=== PATIENT | female | born 1980 | race Caucasian/White ===

== ENCOUNTER 2021-12-02 12:11 | Emergency (ER) | payer MEDICAID ==
[~2021-12-02] VITALS: Ht 167.6 cm; Wt 85.0 kg
[2021-12-02 14:29] LABS: Basophils # (auto) 0.1 10 ^3/uL (0-0.2); Basophils % (auto) 2.9 % (0.0-2.0); Eosinophils # (auto) 0.1 10 ^3/uL (0-0.8); Eosinophils % (auto) 1.9 % (0.0-7.0); Hematocrit 37.5 % (36.0-46.0); Hemoglobin 12.3 g/dL (12.2-16.2); Lymphocytes # (auto) 1.2 10 ^3/uL (0.4-5.4); Lymphocytes % (auto) 25.6 % (10.0-50.0); Mean Corpuscular Hemoglobin 27.9 pg (28.0-32.0); Mean Corpuscular Hgb Conc. 32.9 g/dL (32.0-36.0); Mean Corpuscular Volume 84.9 fL (80.0-100.0); Monocytes # (auto) 0.2 10 ^3/uL (0-1.3); Monocytes % (auto) 5.3 % (0.0-12.0); Neutrophils % (auto) 64.3 % (37.0-80.0); Red Blood Cells 4.42 10^6/uL (4.0-5.20); Red Cell Distribution Width 13.9 % (11.8-14.3); White Blood Cell 4.7 10^3/uL (4.4-10.8)
[2021-12-02 14:49] LABS: Albumin 3.8 g/dL (3.4-5.0); CRP High Sensitivity 0.6 mg/dL (< 0.3); Calcium 8.5 mg/dL (8.5-10.1); Potassium 4.2 mmol/L (3.5-5.1)
[2021-12-02 14:52] LABS: Bilirubin, Total 0.4 mg/dL (0.2-1.0); Total Protein 7.6 g/dL (6.4-8.2)
[2021-12-02] MEDS ORDERED: CLIN300C8 PO (15:36)
[2021-12-02] MEDS ORDERED: FUROSEMIDE 20 MG TAB PO ONE (15:45)
[2021-12-02 15:57] VITALS: BP 130/76
== END 2021-12-02 16:07 | disposition home or self-care (01) ==
LOC: ER 12:11
DX: L03.116 Cellulitis of left lower limb (principal); R60.0 Localized edema; F19.10 Other psychoactive substance abuse, uncomplicated; Z90.49 Acquired absence of other specified parts of digestive tract; Z88.1 Allergy status to other antibiotic agents; Z79.2 Long term (current) use of antibiotics
CPT/HCPCS: 36415; 80053; 83605; 83880; 85025; 86141

== ENCOUNTER 2021-12-16 10:29 | Emergency (ER) | payer MEDICAID ==
[~2021-12-16] VITALS: Ht 167.6 cm; Wt 93.8 kg
[~2021-12-16 10:29] MED LIST: CLIN300C8 PO
[2021-12-16 11:23] VITALS: BP 98/60
[2021-12-16] MEDS ORDERED: BACDST PO (11:41)
[2021-12-16] MEDS ORDERED: CEPH-510 PO (11:41)
== END 2021-12-16 11:47 | disposition home or self-care (01) ==
LOC: ER 10:29
DX: Z48.817 Encounter for surgical aftercare following surgery on the skin and subcutaneous tissue (principal); Z90.49 Acquired absence of other specified parts of digestive tract; Z88.1 Allergy status to other antibiotic agents
CPT/HCPCS: 99283; J7030

== ENCOUNTER 2022-08-18 14:02 | Inpatient (IN) | payer MEDICAID ==
[~2022-08-18] VITALS: Ht 167.6 cm; Wt 100.2 kg
[~2022-08-18 14:02] MED LIST changes: +BACDST PO; +CEPH-510 PO; +CLIN300C70 PO; -CLIN300C8 PO
[2022-08-18] MEDS ORDERED: SODIUM CHLORIDE 0.9% 1,000 ML IV ONE (14:45)
[2022-08-18] MEDS ORDERED: CLINDAMYCIN 600MG IV 50 ML IV ONE (14:45)
[2022-08-18] MEDS ORDERED: cefTRIAXone 1GM/50ML D5W 50 ML IV ONE (14:45)
[2022-08-18 15:12] LABS: Basophils # (auto) 0 10 ^3/uL (0-0.2); Basophils % (auto) 0.3 % (0.0-2.0); Eosinophils # (auto) 0 10 ^3/uL (0-0.8); Hemoglobin 14.1 g/dL (12.2-16.2); Lymphocytes # (auto) 0.7 10 ^3/uL (0.4-5.4); Lymphocytes % (auto) 7.2 % (10.0-50.0); Mean Corpuscular Hemoglobin 27.4 pg (28.0-32.0); Mean Corpuscular Hgb Conc. 33.5 g/dL (32.0-36.0); Monocytes # (auto) 0.4 10 ^3/uL (0-1.3); Neutrophils # (auto) 9.2 10 ^3/uL (1.6-8.6); Neutrophils % (auto) 88.5 % (37.0-80.0); Nucleated Red Blood Cells % 0.6 %; Red Blood Cells 5.12 10^6/uL (4.0-5.20); Red Cell Distribution Width 15.1 % (11.8-14.3); White Blood Cell 10.4 10^3/uL (4.4-10.8)
[2022-08-18 15:29] LABS: Albumin 3.6 g/dL (3.4-5.0); Calcium 8.4 mg/dL (8.5-10.1); Potassium 3.7 mmol/L (3.5-5.1)
[2022-08-18 15:32] LABS: BUN/Creatinine Ratio 16.5 (10.0-20.0); INR 1.03 (0.9-1.15); Partial Thromboplastin Time 31.4 sec (24.6-33.4); Total Protein 8.2 g/dL (6.4-8.2)
[2022-08-18 15:33] LABS: Lactic Acid w/Reflex 2.2 mmol/L (0.4-2.0)
[2022-08-18 15:59] LABS: Urine Bacteria NONE SEEN /hpf (None Seen); Urine Blood Negative /uL (Negative); Urine Mucus FEW (None Seen); Urine Specific Gravity 1.025 (1.001-1.035); Urine WBC 5 /hpf (0 - 5)
[2022-08-18] MEDS: AMPICILLIN & SULBACTAM SODIUM 3 GM in SODIUM CHL 0.9% 100 ML IV SCH (20:00)
[2022-08-18] MEDS ORDERED: VANCOMYCIN PER PHARMACY 0 MG IV SCH (20:00)
[2022-08-19] MEDS: AMPICILLIN & SULBACTAM SODIUM 3 GM in SODIUM CHL 0.9% 100 ML IV SCH ×4 (02:00→20:52)
[2022-08-19] MEDS: VANCOMYCIN 1GM/250ML 250 ML IV SCH ×3 (03:27→23:00)
[2022-08-19 06:01] LABS: Basophils # (auto) 0 10 ^3/uL (0-0.2); Basophils % (auto) 0.1 % (0.0-2.0); Eosinophils # (auto) 0 10 ^3/uL (0-0.8); Eosinophils % (auto) 0.6 % (0.0-7.0); Hematocrit 36.9 % (36.0-46.0); Hemoglobin 12.6 g/dL (12.2-16.2); Lymphocytes % (auto) 14.1 % (10.0-50.0); Mean Corpuscular Volume 82.3 fL (80.0-100.0); Monocytes # (auto) 0.4 10 ^3/uL (0-1.3); Monocytes % (auto) 5.3 % (0.0-12.0); Neutrophils # (auto) 5.7 10 ^3/uL (1.6-8.6); Neutrophils % (auto) 79.9 % (37.0-80.0); Nucleated Red Blood Cells % 0.1 %; Red Blood Cells 4.48 10^6/uL (4.0-5.20); Red Cell Distribution Width 14.9 % (11.8-14.3); White Blood Cell 7.1 10^3/uL (4.4-10.8)
[2022-08-19 06:02] LABS: Albumin 3.4 g/dL (3.4-5.0); Potassium 3.4 mmol/L (3.5-5.1)
[2022-08-19 06:07] LABS: BUN/Creatinine Ratio 14.3 (10.0-20.0); Bilirubin, Total 0.9 mg/dL (0.2-1.0); Calcium 8.7 mg/dL (8.5-10.1); Total Protein 7.9 g/dL (6.4-8.2)
[2022-08-19 16:22] VITALS: BP 129/69
[2022-08-19 17:05] VITALS: BP 129/69
[2022-08-19 20:00] VITALS: BP 120/62
[2022-08-20] MEDS: AMPICILLIN & SULBACTAM SODIUM 3 GM in SODIUM CHL 0.9% 100 ML IV SCH ×3 (01:54→13:39)
[2022-08-20 05:00] VITALS: BP 135/76
[2022-08-20] MEDS: VANCOMYCIN 1GM/250ML 250 ML IV SCH ×3 (06:47→22:07)
[2022-08-20 08:00] VITALS: BP 126/68
[2022-08-20] MEDS: ACETAMINOPHEN 325 MG TAB PO PRN ×2 (09:00→21:00)
[2022-08-20] MEDS ORDERED: ONDANSETRON HCL 4 MG/2 ML VIAL IV PRN (10:45)
[2022-08-20 12:00] VITALS: BP 124/68
[2022-08-20] MEDS: METHADONE HCL 10 MG TAB PO SCH ×2 (13:39→22:01)
[2022-08-20 16:00] VITALS: BP 125/77
[2022-08-21 05:00] VITALS: BP 118/60
[2022-08-21 05:23] LABS: Basophils # (auto) 0 10 ^3/uL (0-0.2); Basophils % (auto) 0.6 % (0.0-2.0); Eosinophils # (auto) 0.1 10 ^3/uL (0-0.8); Eosinophils % (auto) 1.3 % (0.0-7.0); Hematocrit 31.9 % (36.0-46.0); Hemoglobin 10.7 g/dL (12.2-16.2); Lymphocytes % (auto) 18.7 % (10.0-50.0); Mean Corpuscular Hemoglobin 27.7 pg (28.0-32.0); Mean Corpuscular Hgb Conc. 33.7 g/dL (32.0-36.0); Mean Corpuscular Volume 82.2 fL (80.0-100.0); Monocytes # (auto) 0.3 10 ^3/uL (0-1.3); Monocytes % (auto) 4.9 % (0.0-12.0); Neutrophils % (auto) 74.5 % (37.0-80.0); Nucleated Red Blood Cells % 0.1 %; Red Blood Cells 3.88 10^6/uL (4.0-5.20); Red Cell Distribution Width 15.2 % (11.8-14.3); White Blood Cell 5.3 10^3/uL (4.4-10.8)
[2022-08-21 06:04] LABS: Calcium 7.9 mg/dL (8.5-10.1); Magnesium 2.1 mg/dL (1.6-2.6); Potassium 3.3 mmol/L (3.5-5.1)
[2022-08-21 06:07] LABS: BUN/Creatinine Ratio 16.4 (10.0-20.0)
[2022-08-21] MEDS: METHADONE HCL 10 MG TAB PO SCH ×3 (06:12→21:57)
[2022-08-21] MEDS: VANCOMYCIN 1GM/250ML 250 ML IV SCH ×3 (06:12→22:00)
[2022-08-21 07:45] VITALS: BP 113/58
[2022-08-21] MEDS ORDERED: POTASSIUM CHL 20 Meq TABLET PO ONE (08:15)
[2022-08-21 12:06] VITALS: BP 121/74
[2022-08-21 16:39] VITALS: BP 115/62
[2022-08-21 22:00] VITALS: BP_SYST 121; BP_SYST 129; BP_DIAS 72; BP_DIAS 75
[2022-08-22 05:00] VITALS: BP 114/68
[2022-08-22] MEDS: METHADONE HCL 10 MG TAB PO SCH ×3 (06:06→21:54)
[2022-08-22] MEDS: VANCOMYCIN 1GM/250ML 250 ML IV SCH ×4 (06:07→22:40)
[2022-08-22 08:25] LABS: BUN/Creatinine Ratio 13.4 (10.0-20.0); Calcium 8.7 mg/dL (8.5-10.1); Potassium 3.6 mmol/L (3.5-5.1)
[2022-08-22 09:00] VITALS: BP 116/65
[2022-08-22 12:10] VITALS: BP 110/57
[2022-08-22 16:49] VITALS: BP 137/76
[2022-08-22 22:00] VITALS: BP 144/82
[2022-08-23 05:00] VITALS: BP 137/81
[2022-08-23] MEDS: VANCOMYCIN 1GM/250ML 250 ML IV SCH (06:03)
[2022-08-23] MEDS: METHADONE HCL 10 MG TAB PO SCH (06:03)
[2022-08-23 09:00] VITALS: BP 129/81
[2022-08-23] MEDS ORDERED: BACDST PO (11:31)
[2022-08-23] MEDS ORDERED: METH10T PO ×3 (11:32→13:42)
[2022-08-23 13:00] VITALS: BP 123/81
[2022-08-23 13:11] VITALS: BP 123/81
== END 2022-08-23 14:15 | disposition home or self-care (01) | DRG 383 ==
LOC: ER 14:02 → OVERFLOW 19:46 → CENTRAL 08-19 14:53
PROVIDERS: ADMIT Nurse Practitioner Family; ATTEND Internal Medicine Geriatric Medicine
DX: L03.116 Cellulitis of left lower limb (principal); E87.1 Hypo-osmolality and hyponatremia; E66.9 Obesity, unspecified; E87.6 Hypokalemia; L97.329 Non-pressure chronic ulcer of left ankle with unspecified severity; S91.002A Unspecified open wound, left ankle, initial encounter; X58.XXXA Exposure to other specified factors, initial encounter; F17.200 Nicotine dependence, unspecified, uncomplicated; I87.8 Other specified disorders of veins; B96.1 Klebsiella pneumoniae [K. pneumoniae] as the cause of diseases classified elsewhere; B95.62 Methicillin resistant Staphylococcus aureus infection as the cause of diseases classified elsewhere; Z88.1 Allergy status to other antibiotic agents; Z59.00 Homelessness unspecified; Z80.1 Family history of malignant neoplasm of trachea, bronchus and lung; Z90.49 Acquired absence of other specified parts of digestive tract; Z59.7 Insufficient social insurance and welfare support; Z68.35 Body mass index [BMI] 35.0-35.9, adult; Y93.89 Activity, other specified; Y92.89 Other specified places as the place of occurrence of the external cause; Y99.8 Other external cause status
CPT/HCPCS: 36415; 71045; 73700; 80048; 80053; 80202; 81001; 83605; 83735; 83880; 85025; 85610; 85730; 87040; 87077; 87186; 87205; 93926; 93970; 93971; G0378; J0696; J3490

== ENCOUNTER 2023-01-27 11:10 | Inpatient (IN) | payer MEDICAID ==
[~2023-01-27] VITALS: Ht 167.6 cm; Wt 96.2 kg
[~2023-01-27 11:10] MED LIST changes: -CEPH-510 PO; -CLIN300C70 PO; +METH10T PO
[2023-01-27] MEDS ORDERED: VANCOMYCIN 1GM/250ML 250 ML IV ONE ×2 (12:45→17:15)
[2023-01-27 13:25] LABS: Basophils # (auto) 0.1 10 ^3/uL (0-0.2); Basophils % (auto) 0.5 % (0.0-2.0); Eosinophils # (auto) 0 10 ^3/uL (0-0.8); Hemoglobin 12.1 g/dL (12.2-16.2); Lymphocytes # (auto) 0.8 10 ^3/uL (0.4-5.4); Lymphocytes % (auto) 6.5 % (10.0-50.0); Mean Corpuscular Hemoglobin 27.2 pg (28.0-32.0); Mean Corpuscular Hgb Conc. 32.6 g/dL (32.0-36.0); Mean Corpuscular Volume 83.3 fL (80.0-100.0); Monocytes # (auto) 0.2 10 ^3/uL (0-1.3); Monocytes % (auto) 1.8 % (0.0-12.0); Neutrophils # (auto) 11.1 10 ^3/uL (1.6-8.6); Neutrophils % (auto) 91.2 % (37.0-80.0); Red Blood Cells 4.45 10^6/uL (4.0-5.20); White Blood Cell 12.1 10^3/uL (4.4-10.8)
[2023-01-27 13:49] LABS: Alanine Aminotransferase 16 U/L (7-40); Alkaline Phosphatase 101 U/L (46-116); Anion Gap 8 (5-15); Aspartate Aminotransferase 33 U/L (13-40); BUN/Creatinine Ratio 16.3 (10.0-20.0); Bilirubin, Total 0.6 mg/dL (0.2-1.0); Blood Urea Nitrogen 13 mg/dL (9-23); Calcium 8.8 mg/dL (8.5-10.1); Carbon Dioxide 27 mmol/L (20-30); Chloride 97 mmol/L (98-107); Glucose 132 mg/dL (74-106); Potassium 4.6 mmol/L (3.5-5.1); Sodium 132 mmol/L (136-145); Total Protein 7.6 g/dL (5.7-8.2)
[2023-01-27 14:34] LABS: Erythrocyte Sedimentation Rate 87 mm/hr (0-20)
[2023-01-27] MEDS ORDERED: ONDANSETRON HCL 4 MG/2 ML VIAL IV PRN (15:45)
[2023-01-27] MEDS ORDERED: ACETAMINOPHEN 500 MG TAB PO PRN (15:45)
[2023-01-27] MEDS ORDERED: VANCOMYCIN PER PHARMACY 0 MG IV SCH (15:45)
[2023-01-27] MEDS ORDERED: LORazepam 2MG/ML-1ML VIAL IV PRN (15:45)
[2023-01-27] MEDS ORDERED: NITROGLYCERIN 0.4 MG SL TAB SL PRN (15:45)
[2023-01-27] MEDS ORDERED: SODIUM CHLORIDE 0.9% 1,000 ML IV ONE (15:45)
[2023-01-28] VITALS (9 sets, daily range): BP systolic 98–117; BP diastolic 51–57; PULSE 70–99; RESP 16–21; TEMP 98.3–99.8; O2SAT 93–99
[2023-01-28] MEDS: cefTAZidime 1 GM in SODIUM CHL 0.9% 50 ML IV SCH ×3 (05:18→22:10)
[2023-01-28] MEDS: HYDROcodone-ACET 5/325MG TAB PO PRN ×3 (05:19→20:25)
[2023-01-28 08:25] LABS: Chloride 97 mmol/L (98-107); Potassium 3.3 mmol/L (3.5-5.1); Sodium 131 mmol/L (136-145)
[2023-01-28 08:26] LABS: Anion Gap 10 (5-15); Calcium 7.1 mg/dL (8.5-10.1); Carbon Dioxide 24 mmol/L (20-30)
[2023-01-28 08:28] LABS: Basophils # (auto) 0 10 ^3/uL (0-0.2); Basophils % (auto) 0.2 % (0.0-2.0); Eosinophils # (auto) 0 10 ^3/uL (0-0.8); Hematocrit 29.1 % (36.0-46.0); Hemoglobin 9.7 g/dL (12.2-16.2); Lymphocytes # (auto) 0.5 10 ^3/uL (0.4-5.4); Lymphocytes % (auto) 5.7 % (10.0-50.0); Mean Corpuscular Hemoglobin 27.4 pg (28.0-32.0); Mean Corpuscular Hgb Conc. 33.5 g/dL (32.0-36.0); Monocytes # (auto) 0.2 10 ^3/uL (0-1.3); Monocytes % (auto) 2.3 % (0.0-12.0); Neutrophils # (auto) 7.8 10 ^3/uL (1.6-8.6); Neutrophils % (auto) 91.8 % (37.0-80.0); Red Blood Cells 3.55 10^6/uL (4.0-5.20); Red Cell Distribution Width 14.7 % (11.8-14.3); White Blood Cell 8.6 10^3/uL (4.4-10.8)
[2023-01-28 08:31] LABS: BUN/Creatinine Ratio 21.6 (10.0-20.0); Blood Urea Nitrogen 11 mg/dL (9-23); Glucose 95 mg/dL (74-106)
[2023-01-28] MEDS ORDERED: VANCOMYCIN 1GM/250ML 250 ML IV ONE (11:00)
[2023-01-28] MEDS: FAMOTIDINE 20 MG TAB PO SCH (11:10)
[2023-01-28] MEDS: FUROSEMIDE 20 MG/2 ML VIAL IV SCH (11:11)
[2023-01-28] MEDS: VANCOMYCIN 1GM/250ML 250 ML IV SCH (18:48)
[2023-01-29] VITALS (7 sets, daily range): BP systolic 91–125; BP diastolic 52–98; PULSE 80–113; RESP 16–20; TEMP 97.8–98.7; O2SAT 92–100
[2023-01-29] MEDS: VANCOMYCIN 1GM/250ML 250 ML IV SCH ×3 (02:47→11:15)
[2023-01-29] MEDS: HYDROcodone-ACET 5/325MG TAB PO PRN ×3 (02:47→20:40)
[2023-01-29] MEDS: cefTAZidime 1 GM in SODIUM CHL 0.9% 50 ML IV SCH ×3 (06:01→22:23)
[2023-01-29] MEDS: FUROSEMIDE 20 MG/2 ML VIAL IV SCH (10:00)
[2023-01-29] MEDS: FAMOTIDINE 20 MG TAB PO SCH (11:14)
[2023-01-29] MEDS ORDERED: POTASSIUM CHL 20 Meq TABLET PO ONE (11:45)
[2023-01-29] MEDS: MORPHINE SULFATE INJ 2 MG/ml SYRG IV PRN (17:08)
[2023-01-29] MEDS ORDERED: VANCOMYCIN 1GM/250ML 250 ML IV ONE (19:30)
[2023-01-30 04:46] VITALS: BP 134/67; PULSE 65; RESP 17; TEMP 97.8; O2SAT 98
[2023-01-30] MEDS: MORPHINE SULFATE INJ 2 MG/ml SYRG IV PRN ×2 (04:46→12:22)
[2023-01-30] MEDS: cefTAZidime 1 GM in SODIUM CHL 0.9% 50 ML IV SCH ×3 (05:38→22:31)
[2023-01-30 05:45] LABS: Basophils # (auto) 0 10 ^3/uL (0-0.2); Eosinophils # (auto) 0 10 ^3/uL (0-0.8); Eosinophils % (auto) 0.9 % (0.0-7.0); Lymphocytes # (auto) 0.8 10 ^3/uL (0.4-5.4); Monocytes # (auto) 0.3 10 ^3/uL (0-1.3); Neutrophils # (auto) 3.9 10 ^3/uL (1.6-8.6)
[2023-01-30 05:46] LABS: Anion Gap 8 (5-15); Calcium 8.3 mg/dL (8.7-10.4); Carbon Dioxide 26 mmol/L (20-30); Chloride 103 mmol/L (98-107); Potassium 3.1 mmol/L (3.5-5.1); Sodium 137 mmol/L (136-145)
[2023-01-30 05:49] LABS: Basophils % (auto) 0.5 % (0.0-2.0); Hematocrit 28.3 % (36.0-46.0); Hemoglobin 9.3 g/dL (12.2-16.2); Lymphocytes % (auto) 14.9 % (10.0-50.0); Mean Corpuscular Hemoglobin 27.3 pg (28.0-32.0); Mean Corpuscular Hgb Conc. 32.8 g/dL (32.0-36.0); Mean Corpuscular Volume 83.3 fL (80.0-100.0); Monocytes % (auto) 5.9 % (0.0-12.0); Neutrophils % (auto) 77.8 % (37.0-80.0); Nucleated Red Blood Cells % 0.2 %; Red Cell Distribution Width 15.5 % (11.8-14.3)
[2023-01-30 05:52] LABS: BUN/Creatinine Ratio 9.8 (10.0-20.0); Blood Urea Nitrogen 6 mg/dL (9-23); Glucose 117 mg/dL (74-106)
[2023-01-30 08:00] VITALS: BP 107/68; PULSE 87; RESP 17; TEMP 98.7; O2SAT 97
[2023-01-30 09:19] VITALS: BP 107/68; PULSE 87; RESP 17; TEMP 98.7; O2SAT 97
[2023-01-30] MEDS: FAMOTIDINE 20 MG TAB PO SCH (10:02)
[2023-01-30] MEDS: HYDROcodone-ACET 5/325MG TAB PO PRN ×2 (10:02→17:42)
[2023-01-30] MEDS: FUROSEMIDE 20 MG/2 ML VIAL IV SCH (10:03)
[2023-01-30] MEDS ORDERED: VANCOMYCIN 1GM/250ML 250 ML IV ONE (11:00)
[2023-01-30] MEDS ORDERED: POTASSIUM CHL 20 Meq TABLET PO ONE (11:15)
[2023-01-30 13:02] VITALS: BP 103/51; PULSE 57; RESP 18; TEMP 98; O2SAT 100
[2023-01-30 16:33] VITALS: BP 99/61; PULSE 78; RESP 18; TEMP 98; O2SAT 95
[2023-01-30 22:00] VITALS: BP 107/62; PULSE 68; RESP 18; TEMP 97.8; O2SAT 99
[2023-01-30] MEDS ORDERED: VANCOMYCIN 1GM/250ML 250 ML IV SCH (23:00)
[2023-01-31] MEDS: HYDROcodone-ACET 5/325MG TAB PO PRN ×2 (00:53→10:23)
[2023-01-31 05:00] VITALS: BP 101/54; PULSE 81; RESP 17; TEMP 98.1; O2SAT 94
[2023-01-31 05:15] LABS: Basophils # (auto) 0 10 ^3/uL (0-0.2); Basophils % (auto) 0.3 % (0.0-2.0); Lymphocytes # (auto) 1.1 10 ^3/uL (0.4-5.4); Monocytes # (auto) 0.3 10 ^3/uL (0-1.3); Neutrophils # (auto) 2.5 10 ^3/uL (1.6-8.6); Nucleated Red Blood Cells % 0.1 %
[2023-01-31 05:19] LABS: Eosinophils # (auto) 0 10 ^3/uL (0-0.8); Eosinophils % (auto) 1.2 % (0.0-7.0); Hematocrit 28.1 % (36.0-46.0); Hemoglobin 9.2 g/dL (12.2-16.2); Lymphocytes % (auto) 27.2 % (10.0-50.0); Mean Corpuscular Hemoglobin 27.2 pg (28.0-32.0); Mean Corpuscular Hgb Conc. 32.8 g/dL (32.0-36.0); Mean Corpuscular Volume 82.9 fL (80.0-100.0); Neutrophils % (auto) 63.3 % (37.0-80.0); Red Blood Cells 3.39 10^6/uL (4.0-5.20); Red Cell Distribution Width 15.3 % (11.8-14.3)
[2023-01-31 05:30] LABS: Anion Gap 5 (5-15); Calcium 8.3 mg/dL (8.7-10.4); Carbon Dioxide 29 mmol/L (20-30); Chloride 105 mmol/L (98-107); Potassium 3.6 mmol/L (3.5-5.1); Sodium 139 mmol/L (136-145)
[2023-01-31 05:36] LABS: Glucose 106 mg/dL (74-106)
[2023-01-31] MEDS: cefTAZidime 1 GM in SODIUM CHL 0.9% 50 ML IV SCH (05:48)
[2023-01-31 06:00] LABS: BUN/Creatinine Ratio 8.8 (10.0-20.0); Blood Urea Nitrogen < 5 mg/dL (9-23)
[2023-01-31 08:00] VITALS: PULSE 88; RESP 18; O2SAT 96
[2023-01-31] MEDS: FUROSEMIDE 20 MG/2 ML VIAL IV SCH (10:22)
[2023-01-31] MEDS: FAMOTIDINE 20 MG TAB PO SCH (10:22)
[2023-01-31 10:37] VITALS: BP 113/68; PULSE 75; RESP 19; TEMP 98.2; O2SAT 94
[2023-01-31] MEDS ORDERED: IBU600T PO (13:13)
[2023-01-31] MEDS ORDERED: BACDST PO (13:13)
[2023-01-31] MEDS ORDERED: TRI05TP TOP (13:13)
[2023-01-31 13:17] VITALS: BP 111/60; PULSE 75; RESP 19; TEMP 97.7; O2SAT 99
[2023-01-31 16:30] VITALS: BP 113/68; PULSE 75; RESP 18; TEMP 36.5
[2023-01-31 16:56] VITALS: BP 122/66; PULSE 71; RESP 19; TEMP 97.9; O2SAT 97
== END 2023-01-31 17:15 | disposition home or self-care (01) | DRG 720 ==
LOC: ER 11:10 → OVERFLOW 16:15 → CENTRAL 01-28 04:56
PROVIDERS: ADMIT Nurse Practitioner Acute Care; ATTEND Nurse Practitioner Acute Care
DX: A41.9 Sepsis, unspecified organism (principal); L03.115 Cellulitis of right lower limb; F11.90 Opioid use, unspecified, uncomplicated; L03.116 Cellulitis of left lower limb; Z88.1 Allergy status to other antibiotic agents; Z90.49 Acquired absence of other specified parts of digestive tract; Z72.0 Tobacco use
CPT/HCPCS: 36415; 73700; 80048; 80053; 80202; 82565; 83605; 83880; 85025; 85652; 86141; 87081; 93306; 93970; G0378

== ENCOUNTER 2023-05-25 22:03 | Inpatient (IN) | payer MEDICAID ==
[~2023-05-25] VITALS: Ht 167.6 cm; Wt 99.4 kg
[~2023-05-25 22:03] MED LIST changes: +IBU600T PO; -METH10T PO; +TRI05TP TOP
[2023-05-26 01:52] LABS: Basophils # (auto) 0 10 ^3/uL (0-0.2); Eosinophils # (auto) 0.1 10 ^3/uL (0-0.8); Hemoglobin 10.7 g/dL (12.2-16.2); Lymphocytes # (auto) 1.4 10 ^3/uL (0.4-5.4); Monocytes # (auto) 0.4 10 ^3/uL (0-1.3); Neutrophils # (auto) 4.4 10 ^3/uL (1.6-8.6); Neutrophils % (auto) 69.4 % (37.0-80.0)
[2023-05-26 01:53] LABS: Basophils % (auto) 0.4 % (0.0-2.0); Eosinophils % (auto) 1.9 % (0.0-7.0); Hematocrit 33.3 % (36.0-46.0); Lymphocytes % (auto) 21.9 % (10.0-50.0); Mean Corpuscular Hemoglobin 26.3 pg (28.0-32.0); Mean Corpuscular Hgb Conc. 32.2 g/dL (32.0-36.0); Mean Corpuscular Volume 81.6 fL (80.0-100.0); Monocytes % (auto) 6.4 % (0.0-12.0); Nucleated Red Blood Cells % 0.1 %; Red Blood Cells 4.09 10^6/uL (4.0-5.20); Red Cell Distribution Width 14.6 % (11.8-14.3); White Blood Cell 6.3 10^3/uL (4.4-10.8)
[2023-05-26 02:11] LABS: Alanine Aminotransferase 15 U/L (7-40); Alkaline Phosphatase 101 U/L (46-116); Anion Gap 6 (5-15); Aspartate Aminotransferase 15 U/L (13-40); BUN/Creatinine Ratio 11.1 (10.0-20.0); Bilirubin, Total 0.2 mg/dL (0.2-1.0); Blood Urea Nitrogen 8 mg/dL (9-23); Calcium 9.5 mg/dL (8.7-10.4); Carbon Dioxide 30 mmol/L (20-30); Chloride 102 mmol/L (98-107); Glucose 97 mg/dL (74-106); Potassium 4.2 mmol/L (3.5-5.1); Sodium 138 mmol/L (136-145); Total Protein 8.9 g/dL (5.7-8.2)
[2023-05-26] MEDS ORDERED: VANCOMYCIN PER PHARMACY 0 MG IV SCH ×3 (03:00→05:45)
[2023-05-26] MEDS: VANCOMYCIN 1GM/200ML 200 ML IV ONE (04:00)
[2023-05-26 04:01] VITALS: PULSE 73; RESP 21; O2SAT 98
[2023-05-26] MEDS ORDERED: MORPHINE SULFATE INJ 2 MG/ml SYRG IV PRN (05:30)
[2023-05-26] MEDS ORDERED: TEMAZEPAM 15 MG CAP PO PRN (05:30)
[2023-05-26] MEDS ORDERED: DOCUSATE SOD 100 MG CAP PO PRN (05:30)
[2023-05-26] MEDS ORDERED: NITROGLYCERIN 0.4 MG SL TAB SL PRN (05:30)
[2023-05-26] MEDS ORDERED: ACETAMINOPHEN 325 MG TAB PO PRN (05:30)
[2023-05-26] MEDS ORDERED: ONDANSETRON HCL 4 MG/2 ML VIAL IV PRN (05:30)
[2023-05-26] MEDS: PIPERACILLIN-TAZOB 3.375GM 100 ML IV SCH (07:01)
[2023-05-26 07:46] VITALS: PULSE 83; RESP 12; O2SAT 95
[2023-05-26] MEDS: LISINOPRIL 20 MG TAB PO SCH (12:57)
[2023-05-26] MEDS: ASCORBIC ACID 500 MG TAB PO SCH (12:59)
[2023-05-26] MEDS: ZINC SULFATE 220mg CAP or TAB PO SCH (13:00)
[2023-05-26] MEDS: MULTIPLE VITAMIN TAB PO SCH (13:00)
[2023-05-26] MEDS: ENOXAPARIN SOD 40 MG/0.4 ML SYRINGE SC SCH (13:00)
[2023-05-26] MEDS: MORPHINE SULFATE INJ 2 MG/ml SYRG IV PRN (13:02)
[2023-05-26] MEDS: VANCOMYCIN 1GM/200ML 200 ML IV SCH (14:33)
[2023-05-26 17:00] VITALS: BP 127/82; PULSE 99; RESP 16; TEMP 97.8; O2SAT 97
[2023-05-26 17:53] VITALS: BP 127/82; PULSE 99; RESP 16; RESP 18; TEMP 97.8; O2SAT 97
[2023-05-26] MEDS: HYDROcodone-ACET 5/325MG TAB PO PRN (18:55)
[2023-05-26 20:00] VITALS: PULSE 80; RESP 16
[2023-05-26 22:00] VITALS: BP 110/65; PULSE 80; RESP 16; TEMP 97.9; O2SAT 92
[2023-05-27 01:00] VITALS: BP 107/55; PULSE 78; RESP 16; O2SAT 93
[2023-05-27 05:00] VITALS: BP 110/61; PULSE 82; RESP 19; TEMP 98.3; O2SAT 94
[2023-05-27 05:14] LABS: Basophils # (auto) 0 10 ^3/uL (0-0.2); Basophils % (auto) 0.3 % (0.0-2.0); Eosinophils # (auto) 0.1 10 ^3/uL (0-0.8); Eosinophils % (auto) 2.9 % (0.0-7.0); Hematocrit 30.4 % (36.0-46.0); Hemoglobin 9.8 g/dL (12.2-16.2); Lymphocytes # (auto) 1.2 10 ^3/uL (0.4-5.4); Lymphocytes % (auto) 23.6 % (10.0-50.0); Mean Corpuscular Hemoglobin 26.2 pg (28.0-32.0); Mean Corpuscular Hgb Conc. 32.2 g/dL (32.0-36.0); Mean Corpuscular Volume 81.3 fL (80.0-100.0); Monocytes # (auto) 0.3 10 ^3/uL (0-1.3); Monocytes % (auto) 5.7 % (0.0-12.0); Neutrophils # (auto) 3.3 10 ^3/uL (1.6-8.6); Neutrophils % (auto) 67.5 % (37.0-80.0); Nucleated Red Blood Cells % 0.4 %; Red Blood Cells 3.74 10^6/uL (4.0-5.20); Red Cell Distribution Width 14.5 % (11.8-14.3); White Blood Cell 4.9 10^3/uL (4.4-10.8)
[2023-05-27 05:37] LABS: Alanine Aminotransferase 13 U/L (7-40); Albumin 3.3 g/dL (3.2-4.8); Alkaline Phosphatase 89 U/L (46-116); Anion Gap 6 (5-15); Aspartate Aminotransferase 17 U/L (13-40); BUN/Creatinine Ratio 14.3 (10.0-20.0); Bilirubin, Total 0.2 mg/dL (0.2-1.0); Blood Urea Nitrogen 10 mg/dL (9-23); Calcium 8.6 mg/dL (8.5-10.1); Carbon Dioxide 27 mmol/L (20-30); Chloride 104 mmol/L (98-107); Glucose 92 mg/dL (74-106); Potassium 4.1 mmol/L (3.5-5.1); Sodium 137 mmol/L (136-145); Total Protein 7.2 g/dL (5.7-8.2)
[2023-05-27 09:00] VITALS: BP 111/65; PULSE 79; RESP 16; TEMP 98.5; O2SAT 92
[2023-05-27 13:00] VITALS: BP 125/69; PULSE 64; RESP 20; TEMP 98.1; O2SAT 95
[2023-05-27 17:00] VITALS: BP 104/68; PULSE 86; RESP 18; TEMP 98.1; O2SAT 96
[2023-05-27 20:00] VITALS: BP 102/61; PULSE 78; RESP 20; TEMP 98.2; O2SAT 95
[2023-05-27] MEDS: VANCOMYCIN 1GM/200ML 200 ML IV SCH (22:05)
[2023-05-28] VITALS (7 sets, daily range): BP systolic 102–122; BP diastolic 60–65; PULSE 62–82; RESP 18–20; TEMP 36.9; O2SAT 94–97
[2023-05-28] MEDS ORDERED: CLIN300C70 PO (13:47)
[2023-05-28] MEDS ORDERED: DOXY-286 PO (13:47)
[2023-05-28 14:51] LABS: Chloride 105 mmol/L (98-107); Potassium 4.7 mmol/L (3.5-5.1); Sodium 139 mmol/L (136-145)
[2023-05-28 14:52] LABS: Anion Gap 4 (5-15); Calcium 8.8 mg/dL (8.5-10.1); Carbon Dioxide 30 mmol/L (20-30)
[2023-05-28 14:57] LABS: BUN/Creatinine Ratio 11.8 (10.0-20.0); Blood Urea Nitrogen 9 mg/dL (9-23); Glucose 101 mg/dL (74-106)
[2023-05-29] VITALS (7 sets, daily range): BP systolic 109–132; BP diastolic 49–74; PULSE 61–65; RESP 18–20; TEMP 97.4–98.4; O2SAT 92–99
[2023-05-29] MEDS: CEFEPIME 2GM/50ML NS 50 ML IV SCH (14:35)
[2023-05-29] MEDS ORDERED: CEFEPIME 1GM/ 50ML 50 ML IV SCH (22:00)
[2023-05-30 01:00] VITALS: BP 110/67; PULSE 61; RESP 18; TEMP 97.5; O2SAT 97
[2023-05-30 05:00] VITALS: BP 116/60; PULSE 62; RESP 18; TEMP 98.1; O2SAT 95
[2023-05-30 08:00] VITALS: PULSE 77; RESP 20
[2023-05-30 10:58] VITALS: BP 114/69; PULSE 80; RESP 18
[2023-05-30] MEDS ORDERED: LEVO500T91 PO (11:51)
[2023-05-30] MEDS: levoFLOXacin 250 MG TAB PO SCH (12:00)
[2023-05-30] MEDS: levoFLOXacin 250 MG TAB PO ONE (12:30)
== END 2023-05-30 14:00 | disposition home or self-care (01) | DRG 383 ==
LOC: ER 22:03 → OVERFLOW 05-26 05:19 → ER 05-26 05:19 → CENTRAL 05-26 16:36
PROVIDERS: ADMIT Nurse Practitioner; ATTEND Nurse Practitioner
DX: L03.115 Cellulitis of right lower limb (principal); E66.01 Morbid (severe) obesity due to excess calories; L03.116 Cellulitis of left lower limb; F19.10 Other psychoactive substance abuse, uncomplicated; F17.210 Nicotine dependence, cigarettes, uncomplicated; Z88.1 Allergy status to other antibiotic agents; Z80.1 Family history of malignant neoplasm of trachea, bronchus and lung; Z90.49 Acquired absence of other specified parts of digestive tract; Z68.25 Body mass index [BMI] 25.0-25.9, adult
CPT/HCPCS: 36415; 80048; 80053; 80202; 82565; 83605; 85025; 87077; 87186; 87205; 96365; 96372; 97163; G0378; J0692; J2543